=== PATIENT | male | born 2005 | race Caucasian/White ===

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

== ENCOUNTER 2025-04-01 17:40 | Emergency (ER) | payer BC ==
[~2025-04-01] VITALS: Ht 165.1 cm; Wt 84.0 kg
[~2025-04-01 17:40] MED LIST: ACETAMINOPHEN325 M1 PO; CLARITIN10 MG PO; IBUPROFEN IB200 MG PO; NAPROXEN250 MG PO; NORCO 5-325 TA1 EACH PO; SINGULAIR10 MG PO; VENTOLIN HFA18 GM INH
[2025-04-01 20:03] LABS: BASOPHILS 1.1 % (0.2-1.2); EOSINOPHILS 2.6 % (0.8-7.0); LYMPHOCYTES 21.0 % (21.8-53.1); MCH 29.9 PG (25.7-32.2); MCHC 33.8 g/dL (32.3-36.5); MCV 88.3 fL (79.0-92.2); MONOCYTES 8.8 % (5.3-12.2); NEUTROPHILS 66.2 % (34.0-67.9); RBC 5.29 M/uL (4.63-6.08)
[2025-04-01 20:24] LABS: ALT (SGPT) 29.0 U/L (14-59); AST (SGOT) 16.0 U/L (15-37); GLOMERULAR FILTRATION RATE,EST 126.0 mL/min (>60); PROTEIN, TOTAL 7.9 g/dL (6.4-8.2); UREA NITROGEN 12.0 mg/dL (7-18)
[2025-04-01 20:42] VITALS: BP 130/70
--- NOTE | 2025-04-01 22:20 | EKG ---
[facility] [address] [facility] [place] [address] Signed Normal sinus rhythm with sinus arrhythmia Normal ECG No previous ECGs available Confirmed by Madhu Cortes MD () on 04/01/2025 10:20:13 PM Electronically Signed By: MADHU CORTES MD 04/01/252219 PATIENT NAME: AMBROCIO DEGROOT Electrocardiogram DATE OF : 03 PHYSICIAN: MADHU CORTES MD REPORT #: [id number] REPORT IS CONFIDENTIAL AND NOT TO BE RELEASED WITHOUT AUTHORIZATION
== END 2025-04-01 20:45 | disposition home or self-care (01) ==
LOC: ED 17:40
PROVIDERS: Emergency Medicine
DX: R07.89 Other chest pain (principal); J45.909 Unspecified asthma, uncomplicated; Z79.899 Other long term (current) drug therapy
CPT/HCPCS: 36415; 71046; 80053; 84484; 85025; 93005; 93010; 99285-25